=== PATIENT | male | born 1985 | race Caucasian/White ===

== ENCOUNTER 2017-12-13 15:35 | Emergency (ER) | payer OTHER ==
[2017-12-13] MEDS: HYDROCODONE/APAP (5/325) TAB PO (18:32)
[2017-12-13] MEDS: DIPHTH/TET/ACEL PERTUSS (ADULT) 0.5 ML VIAL IM* (18:32)
[2017-12-13] MEDS: ONDANSETRON (ODT) 4 MG TAB ODT (18:32)
[2017-12-13] MEDS: LIDOCAINE 1% (MDV) 20 ML INJ SC (19:28)
[2017-12-13] MEDS: CEFAZOLIN 1 GM/50 ML (PMX) 50 ML IVPB (20:20)
[2017-12-13] MEDS: SOD CHLORIDE 0.9% 500 ML IV (20:21)
[2017-12-13] MEDS: morphine 4 MG/ML VIAL IV (20:37)
[2017-12-13] MEDS: AMPICILLIN/SULB 3 GM/NS (PMX) 100 ML IVPB (20:52)
== END 2017-12-13 22:23 | disposition home or self-care (01) ==
LOC: FTE 15:35
DX: S62.614A Displaced fracture of proximal phalanx of right ring finger, initial encounter for closed fracture (principal); S51.851A Open bite of right forearm, initial encounter; S61.214A Laceration without foreign body of right ring finger without damage to nail, initial encounter; W54.0XXA Bitten by dog, initial encounter; Y92.9 Unspecified place or not applicable; Z23 Encounter for immunization
CPT/HCPCS: 26725; 73090-RT; 73110-RT; 73130-RT; 90471; 90715; 96374; 96375; 99284-25